=== PATIENT | male | born 1995 | race African-American/Black ===

== ENCOUNTER 2024-02-13 10:09 | Emergency (ER) | payer SELFPAY ==
[~2024-02-13] VITALS: Ht 182.9 cm; Wt 81.8 kg
[2024-02-13 10:10] VITALS: BP 133/76; PULSE 89; RESP 16; TEMP 97.8
== END 2024-02-13 11:25 | disposition left against medical advice (07) ==
LOC: EMS 10:09
DX: R07.9 Chest pain, unspecified (principal); J45.909 Unspecified asthma, uncomplicated; Z90.49 Acquired absence of other specified parts of digestive tract
CPT/HCPCS: 71045; 93005; 99283